=== PATIENT | female | born 1990 ===

== ENCOUNTER 2024-06-21 08:00 | Day surgery (SDC) | payer OTHER ==
[2024-06-13 09:10] VITALS: BP 124/85
[2024-06-13 09:19] LABS: HEMATOCRIT 39.4 % (36.0-45.00); HEMOGLOBIN 13.1 g/dL (12.0-15.00); MEAN CELL VOLUME 78.7 fL (80.00-100.00); MEAN CORPUSCULAR HEMOGLOBIN 26.1 pg (27.00-32.0); MEAN CORPUSCULAR HGB CONC 33.2 g/dl (32.0-36.0); PLATELET COUNT 332 K/uL (150-450); RED BLOOD COUNT 5.01 M/uL (4.00-6.00); RED CELL DISTRIBUTION WIDTH 14.6 % (11.5-14.5)
[2024-06-13 09:24] LABS: URINE APPEARANCE Clear; URINE BILIRRUBIN Negative (NEGATIVE); URINE BLOOD Negative; URINE COLOR Yellow; URINE GLUCOSE Negative (NEGATIVE); URINE KETONE Negative (NEGATIVE); URINE LEUKOCYTE Negative; URINE NITRATE Negative; URINE PROTEIN Negative (NEGATIVE); URINE UROBILINOGEN 0.2 E.U./dl
[2024-06-13 09:30] LABS: URINE BACTERIA 296.1 uL (0.0-1933); URINE EPITHELIAL CELLS 4.5 uL (0.0-38.8); URINE RBC 3.5 uL (0.0-20.8); URINE WBC 3.3 uL (0.0-23.2)
[2024-06-13 09:35] LABS: INR 0.99; PARTIAL THROMBOPLASTIN TIME 27.4 SECONDS (22.0-34.0); PROTHROMBIN TIME 10.8 SECONDS (9.0-11.5)
[2024-06-13 10:39] LABS: ALBUMIN 3.9 gm/dL (3.4-5.0); BILIRUBIN TOTAL 0.4 mg/dL (0.3-1.2); CREATININE SERUM 0.75 mg/dL (0.55-1.02); GFR 87.94; GLOBULINA 3.7 G/DL (2.4-3.5); POTASSIUM 4.51 mEq/L (3.5-5.1); TOTAL PROTEIN 7.6 gm/dL (6.4-8.2); TSH 1.3 uIU/mL (0.358-3.74)
[~2024-06-21] VITALS: Ht 162.6 cm; Wt 81.6 kg
[~2024-06-21 08:00] MED LIST: FENOFIBRATE134 MG; TOPROL XL25 M1 PO
[2024-06-21] MEDS ORDERED: NAPR500T14 PO (11:11)
[2024-06-21] MEDS ORDERED: MONODOX100 MG PO (11:11)
[2024-06-21] MEDS ORDERED: POVIDONE-IODINE 118 ML BOTT TOP ONE (11:15)
[2024-06-21] MEDS ORDERED: MORPHINE SULFATE 4 MG/ML VIAL IV PRN (11:15)
[2024-06-21] MEDS ORDERED: CEFOXITIN SODIUM 2,000 MG VIAL IV ONE (11:15)
[2024-06-21] MEDS ORDERED: PROMETHAZINE HCL 50 MG/ML AMPUL IM ONE (11:15)
== END 2024-06-21 16:15 | disposition home or self-care (01) ==
LOC: CIR.AMB 08:00
PROVIDERS: ATTEND Obstetrics & Gynecology
DX: D25.0 Submucous leiomyoma of uterus (principal); N84.0 Polyp of corpus uteri; N92.5 Other specified irregular menstruation; I10 Essential (primary) hypertension; E78.5 Hyperlipidemia, unspecified